=== PATIENT | male | born 1965 | race Two or more races ===

== ENCOUNTER 2020-10-10 09:27 | Outpatient (CLI) | payer MEDICAID, SELFPAY ==
--- NOTE | ~2020-10-10 | US_ITS ---
EXAMINATION: US thyroid EXAM DATE: 10/10/2020 10:04 INDICATION: High TSH. TECHNIQUE: Multiple grayscale and Doppler images of the thyroid were obtained (by a technologist who performed the scan) and subsequently reviewed. Individual nodules and recommendations may be reporte d in accordance with TI-RADS system as designated by the 2017 ACR White Paper TI-RADS committee. The re is no prior study for comparison. FINDINGS: Enlarged thyroid gland, right side measuring 5.1 x 2.8 x 1.9 cm, and the left measuring 4.6 x 2.3 x 1 .7 cm. The isthmus is also thickened at 1.2 cm. Relatively homogeneous thyroid echogenicity without f ocal nodule identified. There is mild hypervascularity to thyroid parenchyma. IMPRESSION: Goiter. Reviewed, dictated and finalized at location A. 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
== END 2020-10-10 09:28 | disposition home or self-care (01) ==
PROVIDERS: PCP Emergency Medicine; Visit Provider Emergency Medicine
DX: R94.6 Abnormal results of thyroid function studies (principal); E04.9 Nontoxic goiter, unspecified; E03.9 Hypothyroidism, unspecified
CPT/HCPCS: 76536

== ENCOUNTER 2023-02-07 16:29 | Outpatient (CLI) | payer BC, OTHER, SELFPAY ==
[2023-02-07 17:04] LABS: Hematocrit 44.6 % (42.0-52.0); Hemoglobin 14.9 g/dL (14.0-18.0); Mean Corpuscular HGB Conc 33.4 g/dl (32-36); Mean Corpuscular Hemoglobin 29.2 pg (26-34); Mean Corpuscular Volume 87.5 fl (80-100); Mean Platelet Volume 11.3 fl (7.4-10.4); Platelet Count Result 183 k/mm3 (150-375); Red Cell Distribution Width 13.2 % (11.5-14.5); White Blood Count 7.4 K/mm3 (4.5-10.0)
[2023-02-07 17:05] LABS: Appearance Urine Clear (Clear); Bilirubin Urine Negative (Negative); Blood Urine Negative (Negative); Color Urine Yellow (Yellow); Glucose Urine UA Negative (Negative); Ketones Urine Negative (Negative); Leukocyte Esterase Ur Negative LEU/UL (NEGATIVE); Nitrate Urine Negative (Negative); Protein Urine Negative (Negative); Specific Grav Ur 1.021 (1.001-1.035); pH Urine 5.5 (5.0-9.0)
[2023-02-07 17:08] LABS: Add Urine Microscopic? NO
[2023-02-07 17:18] LABS: Alanine Aminotransferase 102 U/L (6-50); Alkaline Phosphatase 115 U/L (38-126); Anion Gap 6 mmol/L (8-16); Aspartate Amino Transferase 65 U/L (17-59); Bilirubin,Total 1.1 mg/dL (0.2-1.3); Blood Urea Nitrogen 18 mg/dL (9-20); Calcium 8.9 mg/dL (8.4-10.2); Carbon Dioxide 31 mmol/L (22-30); Chloride 102 mmol/L (98-107); Cholesterol 239 mg/dL (0-200); Estimated Glomerular Filt Rate > 60; Glucose 100 mg/dL (65-110); HDL Direct 39 mg/dL; Sodium 139 mmol/L (137-145); Triglycerides 86 mg/dL (<150)
[2023-02-07 17:20] LABS: Rheumatoid Factor < 8.6 IU/ML (<12)
[2023-02-07 17:26] LABS: Hemoglobin A1C 6.6 % (<5.7)
[2023-02-07 17:29] LABS: LDL Cholesterol Direct 161 mg/dL
[2023-02-07 17:31] LABS: Erythrocyte Sedimentation Rate 14 mm/hr (0-20)
[2023-02-07 17:42] LABS: Creatinine Urine 179.4 mg/dL
[2023-02-07 17:47] LABS: Microalbumin Urine Random 8.9 mg/L (0-16.7)
[2023-02-07 17:49] LABS: Prostate Specific Antigen 0.6 ng/mL (< OR = 4.0)
[2023-02-07 17:59] LABS: Free T4 Free Thyroxine 1.01 ng/mL (0.78-2.19)
[2023-02-10 14:04] LABS: Anti Nuclear Antibody Pattern Nuclear, Speckled
== END 2023-02-07 16:30 | disposition home or self-care (01) ==
PROVIDERS: PCP Emergency Medicine; Visit Provider Emergency Medicine
DX: E11.9 Type 2 diabetes mellitus without complications (principal); I10 Essential (primary) hypertension; E78.5 Hyperlipidemia, unspecified
CPT/HCPCS: 36415; 80053; 80061; 81003; 82043; 82306; 83036; 84153; 84439; 84443; 85027; 85652; 86038; 86039; 86430

== ENCOUNTER 2023-02-13 17:09 | Outpatient (CLI) | payer BC, OTHER, SELFPAY ==
--- NOTE | ~2023-02-13 | XR_ITS ---
EXAMINATION: XR shoulder LT min 2V DATE: 02/13/2023 17:49 INDICATION: Left shoulder pain. TECHNIQUE: 4 views of left shoulder were obtained. COMPARISON: None. FINDINGS: Bone alignment is normal. No fracture. Glenohumeral joint is normal. There is mild acromioc lavicular joint osteoarthritis. IMPRESSION: 1. Mild left acromioclavicular joint osteoarthritis. Reviewed, dictated and finalized at location A.
--- NOTE | ~2023-02-13 | XR_ITS ---
EXAMINATION: XR shoulder RT min 2V INDICATION: Shoulder pain TECHNIQUE: Right shoulder pain views of the right shoulder are submitted. COMPARISON: None FINDINGS: Normal alignment. No fracture. Glenohumeral and acromioclavicular joint spaces are normal. Soft tissues are unremarkable. IMPRESSION: 1. No acute osseous abnormality. Reviewed, dictated and finalized at location L.
--- NOTE | ~2023-02-13 | XR_ITS ---
EXAMINATION: XR_CERV2-3V_CR DATE: 02/13/2023 17:49 INDICATION: Neck pain. TECHNIQUE: 3 views of cervical spine were obtained. COMPARISON: None. FINDINGS: Bone alignment is normal. Vertebral body heights are normal. There is moderately decreased disc height at C5-C6 and severely decreased disc height at C6-C7. There is severe bilateral uncoverte bral joint osteoarthritis at C5-C6 and C6-C7. The facet joints are unremarkable. There is mild centra l canal stenosis at C5-C6 and C6-C7. No prevertebral soft tissue swelling. IMPRESSION: 1. Severe cervical spondylosis. Reviewed, dictated and finalized at location A.
--- NOTE | ~2023-02-13 | XR_ITS ---
EXAMINATION: XR thoracic spine 3V DATE: 02/13/2023 17:49 INDICATION: Back pain. TECHNIQUE: 3 views of thoracic spine on 4 radiographs were obtained. COMPARISON: None. FINDINGS: There is 11 degrees levoscoliosis of cervicothoracic spine and 12 degrees dextroscoliosis o f thoracic spine. There is mild chronic anterior wedging of T12 vertebral body. Intervertebral disc h eights are normal in thoracic spine. There are endplate osteophytes at multiple levels. IMPRESSION: 1. Scoliosis. 2. Mild thoracic spondylosis. Reviewed, dictated and finalized at location A.
--- NOTE | ~2023-02-13 | XR_ITS ---
EXAMINATION: XR lumbar spine 2-3V DATE: 02/13/2023 17:49 INDICATION: Back pain. TECHNIQUE: 3 views of lumbar spine were obtained. COMPARISON: None. FINDINGS: There is 5 degrees dextrocurvature of lumbar spine. There is mild chronic anterior wedging of T12 and L1 vertebral bodies. There is mildly decreased disc height at L1-L2, L3-L4, and L5-S1. The re are endplate osteophytes at multiple levels. The facet joints are unremarkable. IMPRESSION: 1. Mild lumbar spondylosis. Reviewed, dictated and finalized at location A. IMPRESSION: 1. Mild lumbar spondylosis.
== END 2023-02-13 17:10 | disposition home or self-care (01) ==
PROVIDERS: PCP Emergency Medicine; Visit Provider Emergency Medicine
DX: M47.812 Spondylosis without myelopathy or radiculopathy, cervical region (principal); M47.816 Spondylosis without myelopathy or radiculopathy, lumbar region; M47.814 Spondylosis without myelopathy or radiculopathy, thoracic region; M41.84 Other forms of scoliosis, thoracic region; M19.012 Primary osteoarthritis, left shoulder
CPT/HCPCS: 72040; 72072; 72100; 73030

== ENCOUNTER 2023-04-10 10:26 | Outpatient (CLI) | payer BC, OTHER, SELFPAY ==
[2023-04-10 14:59] LABS: Iron 89 ug/dL (49-181)
[2023-04-10 15:08] LABS: Percent Iron Saturation 30 % (20-50)
[2023-04-10 15:28] LABS: Hepatitis B Surface Antigen Negative (Negative)
[2023-04-10 15:45] LABS: Hepatitis C Virus Antibody Negative (Negative)
[2023-04-10 16:21] LABS: Alanine Aminotransferase 76 U/L (6-50); Albumin Level 4.3 g/dL (3.5-5.1); Alkaline Phosphatase 113 U/L (38-126); Aspartate Amino Transferase 53 U/L (17-59); Bilirubin,Total 0.4 mg/dL (0.2-1.3)
== END 2023-04-10 10:27 | disposition home or self-care (01) ==
LOC: ANHGOSHLAB 10:27
PROVIDERS: PCP Internal Medicine; Visit Provider Internal Medicine
DX: R74.8 Abnormal levels of other serum enzymes (principal); E11.9 Type 2 diabetes mellitus without complications
CPT/HCPCS: 36415; 80076; 82728; 83540; 83550; 86803; 87340

== ENCOUNTER 2023-04-14 16:24 | Outpatient (CLI) | payer BC, OTHER, SELFPAY ==
--- NOTE | ~2023-04-14 | US_ITS ---
Limited Abdominal Sonogram: Real-time sonographic imaging of the right upper quadrant was performed. Clinical History: Abnormal liver enzymes Findings: The liver appears echogenic, with no evidence of mass lesion or bile duct dilatation. Main portal vein demonstrates normal direction of flow. The gallbladder is absent, compatible prior zachery cystectomy. The common bile duct measures 5 mm. The visualized pancreas, aorta, and IVC are unremark able. Impression: Diffuse fatty infiltration of the liver. Status post cholecystectomy. Reviewed, dictated and finalized at location . Impression: Diffuse fatty infiltration of the liver. Status post cholecystectomy.
== END 2023-04-14 16:25 | disposition home or self-care (01) ==
PROVIDERS: PCP Internal Medicine; Visit Provider Internal Medicine
DX: K76.0 Fatty (change of) liver, not elsewhere classified (principal); R74.8 Abnormal levels of other serum enzymes; E11.9 Type 2 diabetes mellitus without complications; Z90.49 Acquired absence of other specified parts of digestive tract
CPT/HCPCS: 76705

== ENCOUNTER 2023-09-18 16:40 | Outpatient (CLI) | payer BC, OTHER, SELFPAY ==
[2023-09-18 17:39] LABS: Basophils Percent Auto 0.4 % (0.2-1.2); Eosinophils Absolute Auto 0.1 K/mm3 (0-0.3); Eosinophils Percent Auto 1.7 % (0-4.4); Hematocrit 44.2 % (42.0-52.0); Hemoglobin 14.3 g/dL (14.0-18.0); Immature Granulocyte Absolute 0.05 K/mm3 (0.00-0.031); Immature Granulocyte Percent A 0.7 % (0-0.5); Lymphocytes Absolute Auto 2.18 K/mm3 (0.9-3.2); Lymphocytes Percent Auto 31.4 % (18.3-44.2); Mean Corpuscular HGB Conc 32.4 g/dl (32-36); Mean Corpuscular Hemoglobin 28.5 pg (26-34); Mean Corpuscular Volume 88.2 fl (80-100); Mean Platelet Volume 11.1 fl (7.4-10.4); Monocytes Absolute Auto 0.5 K/mm3 (0.1-0.6); Monocytes Percent Auto 7.6 % (2.6-8.5); Neutrophils Percent Auto 58.2 % (45.5-73.1); Platelet Count Result 177 k/mm3 (150-375); Red Blood Count 5.01 M/mm3 (4.6-6.20); Red Cell Distribution Width 13.4 % (11.5-14.5)
[2023-09-18 18:00] LABS: Anion Gap 12 mmol/L (8-16); Blood Urea Nitrogen 17 mg/dL (9-20); Calcium 9.1 mg/dL (8.4-10.2); Carbon Dioxide 25 mmol/L (22-30); Chloride 103 mmol/L (98-107); Estimated Glomerular Filt Rate > 60; Glucose 93 mg/dL (65-110); Potassium 4.1 mmol/L (3.4-5.0); Sodium 140 mmol/L (137-145)
[2023-09-18 20:10] LABS: Hepatitis B Surface Antigen Negative (Negative)
[2023-09-18 20:15] LABS: HAV RESULT Negative (Negative); Hepatitis B Core IgM Result Negative (Negative)
[2023-09-18 20:27] LABS: Hepatitis B Surface Anti Res Negative; Hepatitis C Virus Antibody Negative (Negative)
[2023-09-23 04:00] LABS: Hepatitis B Core Ab Total Nonreactive (Nonreactive)
[2023-09-23 12:34] LABS: NIL 0.09 IU/mL; Quantiferon TB Plus, 1T NEGATIVE (NEGATIVE); TB1-NIL 0.06 IU/mL; TB2-NIL 0.11 IU/mL
== END 2023-09-18 16:41 | disposition home or self-care (01) ==
PROVIDERS: PCP Internal Medicine
DX: Z79.899 Other long term (current) drug therapy (principal); R74.8 Abnormal levels of other serum enzymes; E11.9 Type 2 diabetes mellitus without complications
CPT/HCPCS: 36415; 80048; 80074; 85025; 86480; 86704; 86706; 87340

== ENCOUNTER 2023-10-03 15:59 | Outpatient (CLI) | payer BC, OTHER, SELFPAY ==
[2023-10-03 19:41] LABS: Alanine Aminotransferase 33 U/L (6-50); Albumin Level 4.5 g/dL (3.5-5.1); Alkaline Phosphatase 95 U/L (38-126); Aspartate Amino Transferase 39 U/L (17-59); Bilirubin,Total 0.6 mg/dL (0.2-1.3)
[2023-10-03 20:36] LABS: Hemoglobin A1C 5.7 % (<5.7)
== END 2023-10-03 16:00 | disposition home or self-care (01) ==
LOC: ANHGOSHLAB 16:00
PROVIDERS: PCP Internal Medicine; Visit Provider Internal Medicine
DX: E11.9 Type 2 diabetes mellitus without complications (principal)
CPT/HCPCS: 36415; 80076; 83036; 84443

== ENCOUNTER 2023-11-21 08:14 | Outpatient (CLI) | payer BC, OTHER, SELFPAY ==
--- NOTE | ~2023-11-21 | XR_ITS ---
AP and oblique views of the left ribs Clinical History: Pain Findings: No rib fracture is seen. Osseous alignment is anatomic. Lungs are clear, without focal cons olidation or pleural effusion. Cardiomediastinal contour is within normal limits. Soft tissues are un remarkable. Impression: No rib fracture is seen. Reviewed, dictated and finalized at [facility]. LER HAND Impression: No rib fracture is seen.
--- NOTE | ~2023-11-21 | XR_ITS ---
Right elbow Technique: AP and lateral views were obtained. Clinical History: Pain Findings: No acute fracture or dislocation is seen. Osseous alignment is anatomic. Joint spaces are p reserved. There is enthesopathic change at the triceps tendon insertion. There is no displacement of the fat pads, and soft tissues are unremarkable. Impression: No acute abnormality. Reviewed, dictated and finalized at location . [facility] [employer] Impression: No acute abnormality.
--- NOTE | ~2023-11-21 | XR_ITS ---
Clinical Indication: Status post fall PA and lateral views of the chest: Comparison: None Findings: The lungs are clear, without evidence of focal consolidation or pleural effusion. Cardiome diastinal silhouette is within normal limits. Bones and soft tissues are unremarkable. Impression: Normal chest. Reviewed, dictated and finalized at location . [employer] SUPPORT CONSULTANT Impression: Normal chest.
== END 2023-11-21 08:15 | disposition home or self-care (01) ==
LOC: ANHIMG 08:19
PROVIDERS: PCP Internal Medicine; Visit Provider Nurse Practitioner Family
DX: M25.521 Pain in right elbow (principal); R07.81 Pleurodynia; W19.XXXA Unspecified fall, initial encounter
CPT/HCPCS: 71046; 71100; 73070